=== PATIENT | female | born 1965 | race Caucasian/White ===

== ENCOUNTER 2017-11-26 10:54 | Emergency (ER) | payer SELFPAY ==
[~2017-11-26] VITALS: Ht 160 cm; Wt 78.2 kg
[~2017-11-26 10:54] MED LIST: NOHOMEMEDS
[2017-11-26] MEDS ORDERED: CLARITIN10 M3 PO (12:33)
[2017-11-26] MEDS ORDERED: PATANOL OP100 DROP/5 BOTH EYES (12:33)
[2017-11-26 12:55] VITALS: BP 165/68
== END 2017-11-26 12:59 | disposition home or self-care (01) ==
LOC: EME 10:54
DX: H10.13 Acute atopic conjunctivitis, bilateral (principal); Z88.0 Allergy status to penicillin
CPT/HCPCS: 99281; 99284